=== PATIENT | male | born 1990 | race Hispanic/Latino ===

== ENCOUNTER 2018-06-11 01:27 | Emergency (ER) | payer OTHER ==
[2018-06-11] MEDS ORDERED: DERMABOND SKIN ADHESIVE TOP ONE (02:11)
--- NOTE | 2018-06-11 02:41 | EDPHYS ---
Physician Documentation [facility] Name: Ferny Reinoso Age: 27 yrs Sex: Male : 1990 Arrival Date: 06/11/2018 Time: 01:33 Bed 16 Private MD: ED Physician Damon Rios HPI: 06/11 01:40 This 27 yrs old Male presents to ER via Unassigned with complaints of fall. snw 01:40 Trauma demographics: County: The injury occurred in [place] Location of Injury: The snw injury occurred [facility], Date: June 11, 2018. Mechanism of injury: Fall: the patient fell from a standing position. Associated injuries: The patient sustained injury to the head. Onset: The symptoms/episode began/occurred suddenly, today. The patient has not experienced similar symptoms in the past. It is unknown whether or not the patient has recently seen a physician. immun up to date. Historical: - Allergies: 01:41 Tylenol; jl3 - Immunization history:: unknown. - Social history:: Smoking status: Patient/guardian denies using tobacco, the patient reports quitting approximately 1 years ago. - Ebola Screening: : No symptoms or risks identified at this time. ROS: 01:40 Constitutional: Negative for fever, chills, and weight loss, Eyes: Negative for injury, snw pain, redness, and discharge, ENT: Negative for injury, pain, and discharge, Neck: Negative for injury, pain, and swelling, Cardiovascular: Negative for chest pain, palpitations, and edema, Respiratory: Negative for shortness of breath, cough, wheezing, and pleuritic chest pain, Abdomen/GI: Negative for abdominal pain, nausea, vomiting, diarrhea, and constipation, Back: Negative for injury and pain, : Negative for injury, bleeding, discharge, and swelling, MS/Extremity: Negative for injury and deformity. 01:40 Skin: Positive for laceration(s), of the outer aspect of right eyebrow. 01:40 Neuro: Positive for headache, pt states he passed by some chemicals and he fell and struck his face. Exam: 01:42 Constitutional: This is a well developed, well nourished patient who is awake, alert, snw and in no acute distress. 01:42 Eyes: Pupils equal round and reactive to light, extra-ocular motions intact. Lids and lashes normal. Conjunctiva and sclera are non-icteric and not injected. Cornea within normal limits. Periorbital areas with no swelling, redness, or edema. ENT: Nares patent. No nasal discharge, no septal abnormalities noted. Tympanic membranes are normal and external auditory canals are clear. Oropharynx with no redness, swelling, or masses, exudates, or evidence of obstruction, uvula midline. Mucous membranes moist. Neck: Trachea midline, no thyromegaly or masses palpated, and no cervical lymphadenopathy. Supple, full range of motion without nuchal rigidity, or vertebral point tenderness. No Meningismus. Chest/axilla: Normal chest wall appearance and motion. Nontender with no deformity. No lesions are appreciated. Cardiovascular: Regular rate and rhythm with a normal S1 and S2. No gallops, murmurs, or rubs. Normal PMI, no JVD. No pulse deficits. Respiratory: Lungs have equal breath sounds bilaterally, clear to auscultation and percussion. No rales, rhonchi or wheezes noted. No increased work of breathing, no retractions or nasal flaring. Abdomen/GI: Soft, non-tender, with normal bowel sounds. No distension or tympany. No guarding or rebound. No evidence of tenderness throughout. Back: No spinal tenderness. No costovertebral tenderness. Full range of motion. MS/ Extremity: Pulses equal, no cyanosis. Neurovascular intact. Full, normal range of motion. 01:42 Head/face: Noted is a laceration(s), that is deep, that is linear, 2 cm(s), of the outer aspect of right eyebrow. 01:42 Skin: Appearance: normal except for affected area, injury, laceration(s), the wound is approximately 2 cm(s), with a depth of 1 cm(s), of the outer aspect of right eyebrow, the second wound is approximately 1 cm(s), with a depth of .2 cm(s), of the palmar aspect of proximal phalanx of right ring finger. 01:42 Neuro: Orientation: appropriate for stated age, Mentation: inappropriate for stated age, slow to respond, Memory: no acute changes, Deep tendon reflexes are normal, seizure activity, is not displayed by the patient. 02:08 Special observations: appears sedate. snw Vital Signs: 01:39 BP 111 / 70; Pulse 18; Resp 65; Temp 98.6; Pulse Ox 96% on R/A; oe [place] Coma Score: 02:08 Eye Response: spontaneous(4). Verbal Response: oriented(5). Motor Response: obeys snw commands(6). Total: 15. Laceration: 02:21 Wound Repair of 2cm ( 0.8in ) subcutaneous laceration to outer aspect of right eyebrow. snw Linear shaped.. Distal neuro/vascular/tendon intact. Anesthesia: Local anesthetic administered with 0 mls of 1% lidocaine. Wound prep: Moderate cleansing with betadine by nurse. Skin closed with thin layer Adhesive skin closure using Dermabond. Dressed with none. Patient tolerated well. MDM: 01:33 Patient medically screened. snw 02:08 Data reviewed: vital signs, nurses notes. Data interpreted: Pulse oximetry: on room air snw is 96 %. Interpretation: acceptable. Counseling: I had a detailed discussion with the patient and/or guardian regarding: the historical points, exam findings, and any diagnostic results supporting the discharge/admit diagnosis, radiology results, the need for outpatient follow up, for definitive care. 06/11 01:39 Order name: CT Head C Spine snw 06/11 01:39 Order name: Dermabond; Complete Time: 02:28 snw 06/11 01:39 Order name: Wound Care: forehead and right index finger; Complete Time: 02:28 snw Administered Medications: No medications were administered Disposition: 06:57 Co-signature as Attending Physician, Damon Rios MD. Disposition: 06/11/18 02:40 Discharged to Home. Impression: Laceration without foreign body of unspecified part of head, Abrasion of fingers, Fall on same level, unspecified, Altered mental status, unspecified. - Condition is Stable. - Discharge Instructions: Confusion, Tissue Adhesive Wound Care, Head Injury, Adult, Fall Prevention in the Home, Facial Laceration, Skin Tear Care. - Prescriptions for Keflex 500 mg Oral Capsule - take 1 capsule by ORAL route every 8 hours for 10 days; 30 capsule. - Medication Reconciliation Form, Thank You Letter, Antibiotic Education, Prescription Opioid Use form. - Follow up: Private Physician; When: 1 - 2 days; Reason: Recheck today's complaints, Continuance of care, Re-evaluation by your physician. Follow up: Emergency Department; When: As needed; Reason: Worsening of condition. Signatures: Dispatcher [employer] EDMS Cyndie Hollis, CHAN-C TORCH STRAIGHTENER-Titusw Harvinder Crow RN RN jl3 Damon Rios MD MD gs Corrections: (The following items were deleted from the chart) 03:03 02:40 06/11/2018 02:40 Discharged to Home. Impression: Laceration without foreign body jl3 of unspecified part of head; Abrasion of fingers; Fall on same level, unspecified; Altered mental status, unspecified. Condition is Stable. Forms are Medication Reconciliation Form, Thank You Letter, Antibiotic Education, Prescription Opioid Use. Follow up: Private Physician; When: 1 - 2 days; Reason: Recheck today's complaints, Continuance of care, Re-evaluation by your physician. Follow up: Emergency Department; When: As needed; Reason: Worsening of condition. snw
--- NOTE | 2018-06-11 02:41 | ER ---
Nurse's Notes [facility] Name: Ferny Reinoso Age: 27 yrs Sex: Male : 1990 Arrival Date: 06/11/2018 Time: 01:33 Bed 16 Private MD: Diagnosis: Laceration without foreign body of unspecified part of head;Abrasion of fingers;Fall on same level, unspecified;Altered mental status, unspecified Presentation: 06/11 02:01 Presenting complaint: Patient states: Lac to R. eyebrow; lac to R. ring finger. Pt jl3 lethargic, brought in by guards. Transition of care: patient was not received from another setting of care. Onset of symptoms was June 11, 2018 at 00:30. Risk Assessment: Do you want to hurt yourself or someone else? Patient reports no desire to harm self or others. Initial Sepsis Screen: Does the patient meet any 2 criteria? No. Patient's initial sepsis screen is negative. Does the patient have a suspected source of infection? No. Patient's initial sepsis screen is negative. Care prior to arrival: None. 02:01 Method Of Arrival: Law Enforcement: [place] [employer] jl3 02:01 Acuity: RADHIKA 4 jl3 Triage Assessment: 02:04 General: Appears well groomed, well developed, Behavior is listless. Pain: Complains of jl3 pain in face. Historical: - Allergies: 01:41 Tylenol; jl3 - Immunization history:: unknown. - Social history:: Smoking status: Patient/guardian denies using tobacco, the patient reports quitting approximately 1 years ago. - Ebola Screening: : No symptoms or risks identified at this time. Screenin:42 Abuse screen: Pt denies abuse. Lac to R. eyebrow, R. ring finger. Nutritional jl3 screening: No deficits noted. Tuberculosis screening: No symptoms or risk factors identified. Fall Risk Fall in past 12 months (25 points). Mental Status- Overestimates/Forgets Limitations (15 pts.). Assessment: 01:33 General: Appears slender, well groomed, Pt has small amount of bleeding from R. eyebrow jl3 and R. ring finger. Pt states fell while at [facility]. Behavior is drowsy, listless, Pt appears altered, lethargic. Guard states is not pt's baseline.. Pain: Denies pain. Pain: Complains of pain in face. Neuro: Oriented to person, time, Speech is slurred. Cardiovascular: No deficits noted. Respiratory: No deficits noted. GI: No deficits noted. : No deficits noted. EENT: Eyes Lac above R. eye.. Derm: Wound noted right eye. Musculoskeletal: No deficits noted. Injury Description: Foreign body Laceration sustained to palmar aspect of proximal phalanx of right ring finger. Vital Signs: 01:39 BP 111 / 70; Pulse 18; Resp 65; Temp 98.6; Pulse Ox 96% on R/A; oe [place] Coma Score: 02:08 Eye Response: spontaneous(4). Verbal Response: oriented(5). Motor Response: obeys snw commands(6). Total: 15. ED Course: 01:33 Patient arrived in ED. ed1 01:33 Harvinder Crow, RN is Primary Nurse. jl3 01:33 Cyndie Hollis FNP-C is PHCP. snw 01:33 Damon Rios MD is Attending Physician. snw 02:04 Triage completed. jl3 02:13 CT completed. Patient tolerated procedure well. Patient moved to CT via stretcher. Patient moved back from CT. 02:16 CT Head C Spine In Process Unspecified. EDMS 02:37 Assist provider with laceration repair on right eye that was 2.5 cm. or less using jl3 Dermabond. Patient tolerated well. Patient did not have IV access during this emergency room visit. 02:39 Arm band placed on right wrist. jl3 02:39 Patient has correct armband on for positive identification. jl3 Administered Medications: No medications were administered Outcome: 02:40 Discharge ordered by . snw 03:00 Discharged to Law Enforcement jl3 03:00 Condition: stable 03:00 Discharge instructions given to patient, police, Instructed on discharge instructions, medication usage, wound care, Demonstrated understanding of instructions, medications, wound care, Prescriptions given X 1. 03:03 Patient left the ED. jl3 Signatures: Dispatcher [employer] EDMS Cyndie Hollis FNP-C FNP-Luis Johnson Chelsy Goodwin RN RN ed1 Harvinder Crow RN RN jl3 Kirby Dockery Corrections: (The following items were deleted from the chart) 01:43 01:39 BP 117 / 0; Pulse 18bpm; Resp 65bpm; Pulse Ox 96% RA; Temp 98.6F; oe oe
--- NOTE | 2018-06-11 12:02 | RAD REPORT ---
EXAM DESCRIPTION: CT Head Without Intravenous Contrast. CT Cervical Spine Without Intravenous Cont rast. CLINICAL HISTORY: The patient is 27 years old and is Male; SMASH INJURY TECHNIQUE: Axial computed tomography images of the head/brain and cervical spine without intravenous contrast. Sagittal and coronal reformatted images were created and reviewed. This CT exam was pe rformed using one or more of the following dose reduction techniques: automated exposure control, a djustment of the mA and/or kV according to patient size, and/or use of iterative reconstruction techn ique. COMPARISON: No relevant prior studies available. FINDINGS: Brain: Unremarkable. No hemorrhage. No significant white matter disease. No edema. Ventricles: Unremarkable. No ventriculomegaly. Skull: No acute fracture. Sinuses: Unremarkable as visualized. No acute sinusitis. Mastoid air cells: Unremarkable as visualized. No mastoid effusion. Vertebrae: The vertebral body heights and alignment are maintained. No acute fracture. Discs/spinal canal/neural foramina: The intervertebral disc spaces are maintained. No spinal can al stenosis. Soft tissues: The soft tissues are normal. IMPRESSION: No acute intracranial findings. No fracture or malalignment of the cervical spine. Electronically signed by: Ellie Fairbanks MD 06/11/2018 2:22 AM CDT Due to temporary technical issues with the PACS/Fluency reporting system, reports are being signed by the in house radiologist as a courtesy to ensure prompt reporting. The interpreting radiologist is f ully responsible for the content of the report.
== END 2018-06-11 03:03 | disposition home or self-care (01) ==
LOC: ER 01:27
PROC: 0JQ10ZZ Repair Face Subcutaneous Tissue and Fascia, Open Approach (ICD-10-PCS; principal; 2018-06-11)
DX: S01.91XA Laceration without foreign body of unspecified part of head, initial encounter (principal); S60.414A Abrasion of right ring finger, initial encounter; W18.30XA Fall on same level, unspecified, initial encounter; Y93.9 Activity, unspecified; Y92.9 Unspecified place or not applicable; R41.82 Altered mental status, unspecified; Z88.6 Allergy status to analgesic agent
CPT/HCPCS: 70450; 72125; 99284